=== PATIENT | male | born 1980 | race Caucasian/White ===

== ENCOUNTER 2017-04-23 05:48 | Day surgery (SDC) | payer BC, OTHER ==
[2017-04-23] MEDS ORDERED: SODIUM CHL 0.9% 100ML MINI-BAG 100 ML IVPB ONE (06:47)
[2017-04-23] MEDS ORDERED: LACTATED RINGERS 1,000 ML ONE ×2 (06:47→09:32)
[2017-04-23] MEDS ORDERED: ceFAZolin SODIUM 1 GM VIAL ONE (06:47)
[2017-04-23] MEDS ORDERED: BUPIVACAINE 0.25% W/EPI 50 ML VIAL INJ ONE (07:31)
[2017-04-23] MEDS ORDERED: fentaNYL CITRATE INJ 50 MCG/ML AMP ONE (07:35)
[2017-04-23] MEDS ORDERED: ROCURONIUM BROMIDE 10 MG/ML VIAL ONE (09:32)
[2017-04-23] MEDS ORDERED: LIDOCAINE 1% 10 ML VIAL INJ ONE (10:00)
[2017-04-23] MEDS ORDERED: PROPOFOL 200 MG/20 ML VIAL IV ONE (10:00)
[2017-04-23] MEDS ORDERED: NEOSTIGMINE METHYLSULFATE 1 MG/ML ML IV ONE (10:00)
[2017-04-23] MEDS ORDERED: ATROPINE SULFATE 0.4 MG/ML 1ML VIAL IV ONE (10:00)
[2017-04-23] MEDS ORDERED: ONDANSETRON INJ 4 MG/2 ML VIAL ONE (10:41)
[2017-04-23] MEDS ORDERED: METOCLOPRAMIDE HCL INJ 10 MG/2 ML VIAL ONE (10:42)
--- NOTE | 2017-04-23 10:50 | OP ---
DATE OF PROCEDURE: 04/23/17 PREOPERATIVE DIAGNOSIS: 1. Incarcerated umbilical hernia. POSTOPERATIVE DIAGNOSIS: 1. Incarcerated umbilical hernia. PROCEDURE: 1. Repair of incarcerated umbilical hernia with Surgimesh only. SURGEON: Ben Lopez MD [employer] CONSULTANT: None. ANESTHESIA: Local infiltration 0.25 Marcaine with epinephrine and general endotracheal anesthesia. INDICATIONS FOR SURGERY: The patient is a 37 year-old male who has noticed a mass at his umbilicus since mid March. He denies discrete injury and complains of mild tenderness. After the risks, benefits, and alternatives of the procedure were discussed and accepted, the patient was brought to the surgical suite today for repair during the holiday season. FINDINGS AT TIME OF PROCEDURE: The defect was approximately 1 cm in diameter. There was omentum within the hernia sac which was dissected free. PROCEDURE: After adequate general anesthesia was obtained, the patient was prepped and draped in the usual sterile manner. Surgical time out was taken, the infraumbilical incision was performed first with local infiltration of anesthesia, then with a sharp knife. Dissection was carried down through the skin and subcutaneous tissue to the midline fascia using electrocautery, then using blunt dissection and electrocautery the hernia was dissected free circumferentially. The neck was then incised at the base and the omentum was dissected free using blunt dissection and electrocautery and reduced below the floor of the fascia. When this was done, fat was dissected free circumferentially around the defect to allow for the mesh. This was done with electrocautery and blunt dissection. When this was done, the wound was irrigated with saline. Hemostasis was noted to be adequate. At this time, the hernia was repaired after the tissue edges were freshened with interrupted #1 PDS [id number] sutures. These were placed sequentially and then tightened and tied sequentially. When this done, again the wound was irrigated with saline. Hemostasis was noted to be adequate so at this point a .6.5 x 5 cm oval Surgimesh graft was placed over the defect and sutured in place with interrupted #2-0 Prolene and #2-0 Vicryl sutures and this was oriented horizontally. When this was done, again, the wound was irrigated with saline. The umbilicus was the sutured to the fascia and the abdominal wall with a single [id number] suture of #2-0 Prolene. When this done, again, the wound was irrigated with saline and then the subcutaneous tissue was closed in layers with #2-0 Vicryl and #3-0 Vicryl sutures. The skin edges were approximated with skin stapler. Sterile pressure dressing was applied. Abdominal binder was applied and the patient was awakened and taken to the Recovery Room in good and stable condition. Estimated blood loss was less than 50 mL. All sponge, needle and instrument counts were correct. #[id number] [facility]
[2017-04-23 12:16] VITALS: BP 139/86; TEMP 97; O2SAT 95
== END 2017-04-23 11:45 ==
LOC: AMB 05:48
PROVIDERS: ATTEND Surgery
DX: K42.0 Umbilical hernia with obstruction, without gangrene (principal); K21.9 Gastro-esophageal reflux disease without esophagitis
CPT/HCPCS: 00830; 36415; 49587; 80048; 81001; 85025; J0690; J2405; J2710; J2765; J3010; J3490; J7050; J7120